=== PATIENT | female | born 1945 | race African-American/Black ===

== ENCOUNTER 2018-11-19 09:17 | Day surgery (SDC) | payer OTHER, BC ==
[2018-11-06 13:19] VITALS: BMI 27.3
[2018-11-19] MEDS ORDERED: PROPOFOL 20 ML ONE ×2 (10:24)
[2018-11-19] MEDS ORDERED: LIDOCAINE HCL/PF 2% SDV 5ML VIAL ONE (10:24)
[2018-11-19 15:36] VITALS: BP 116/68; PULSE 67; TEMP 98.2
--- NOTE | 2018-11-21 16:33 | PATH ---
Surgical Pathology Report Patient Name: DANIELA PRADHAN [facility]. Rec. #: [id number] /Age/Gender: 1945 (Age: 73) / F Account: [id number] Location: [facility] Taken: 11/19/2018 Received: 11/19/2018 Reported: 11/21/2018 Physicians: Torri Demarco M.D. Specimen(s) Received A: BX SECOND PORTION DUODENUM B: BX GASTRIC ANTRUM C: BX POLYP GASTRIC BODY D: BX GE JUNCTION Clinical History Abdominal pain Postoperative diagnosis: None given Final Diagnosis A. SECOND PORTION OF DUODENUM, BIOPSY: DUODENAL MUCOSA WITH NO PATHOLOGIC FINDINGS. B. GASTRIC ANTRUM, BIOPSY: MILD CHRONIC GASTRITIS. IMMUNOSTAIN IS NEGATIVE FOR H. PYLORI ORGANISMS. C. GASTRIC BODY, POLYP, BIOPSY: MILD CHRONIC GASTRITIS. IMMUNOSTAIN IS NEGATIVE FOR H. PYLORI ORGANISMS. Note: No polyp is identified. D. GE JUNCTION, BIOPSY: COLUMNAR (GASTRIC-TYPE) MUCOSA SHOWING MILD CHRONIC INFLAMMATION. NEGATIVE FOR INTESTINAL METAPLASIA. NO ESOPHAGEAL (SQUAMOUS) MUCOSA IS IDENTIFIED. Electronically Signed Katty Reyes M.D. Gross Description A. Received in formalin, labeled "biopsy second portion of duodenum" is a hassan, irregular portion of soft tissue measuring 0.3 cm. in greatest dimension. The specimen is submitted in toto in one cassette. B. Received in formalin, labeled "biopsy gastric antrum" is a hassan, irregular portion of soft tissue measuring 0.5 cm. in greatest dimension. The specimen is submitted in toto in one cassette. C. Received in formalin, labeled "biopsy polyp gastric body" is a hassan, irregular portion of soft tissue measuring 0.3 cm. in greatest dimension. The specimen is submitted in toto in one cassette. D. Received in formalin, labeled "biopsy GE junction" is a hassan, irregular portion of soft tissue measuring 0.4 cm. in greatest dimension. The specimen is submitted in toto in one cassette. 11/20/2018 saudi11/20/2018
== END 2018-11-19 15:36 | disposition home or self-care (01) ==
LOC: FASU-ENDO 09:17
PROVIDERS: ATTEND Internal Medicine Gastroenterology
PROC: 0DB68ZX Excision of Stomach, Via Natural or Artificial Opening Endoscopic, Diagnostic (ICD-10-PCS; 2018-11-19)
PROC: 0DB48ZX Excision of Esophagogastric Junction, Via Natural or Artificial Opening Endoscopic, Diagnostic (ICD-10-PCS; 2018-11-19)
PROC: 0DB98ZX Excision of Duodenum, Via Natural or Artificial Opening Endoscopic, Diagnostic (ICD-10-PCS; principal; 2018-11-19 12:03)
DX: K29.50 Unspecified chronic gastritis without bleeding (principal); K20.9 Esophagitis, unspecified; K31.7 Polyp of stomach and duodenum
CPT/HCPCS: 82962; 88305-TC; 88342-TC

== ENCOUNTER 2020-08-12 09:54 | Day surgery (SDC) | payer OTHER, BC ==
[2020-08-09 12:51] VITALS: BMI 28.3
[2020-08-12 11:39] VITALS: TEMP 98
[2020-08-12 11:54] VITALS: BP 105/64; PULSE 75
== END 2020-08-12 11:55 | disposition home or self-care (01) ==
LOC: FASU-ENDO 09:54
PROVIDERS: ATTEND Internal Medicine Gastroenterology
PROC: 0DBL8ZX Excision of Transverse Colon, Via Natural or Artificial Opening Endoscopic, Diagnostic (ICD-10-PCS; 2020-08-12)
PROC: 0DBN8ZX Excision of Sigmoid Colon, Via Natural or Artificial Opening Endoscopic, Diagnostic (ICD-10-PCS; principal; 2020-08-12 10:52)
DX: D12.3 Benign neoplasm of transverse colon (principal); D12.7 Benign neoplasm of rectosigmoid junction; K64.1 Second degree hemorrhoids; K57.30 Diverticulosis of large intestine without perforation or abscess without bleeding; R10.9 Unspecified abdominal pain
CPT/HCPCS: 82962; 88305-TC

== ENCOUNTER 2021-08-29 13:06 | Day surgery (SDC) | payer OTHER, BC ==
[2021-08-28 15:03] VITALS: BMI 28.3
[2021-08-29 13:22] VITALS: TEMP 97.4
[2021-08-29 14:58] VITALS: BP 101/56; PULSE 69
== END 2021-08-29 15:00 | disposition home or self-care (01) ==
LOC: FASU-ENDO 13:06
PROVIDERS: ATTEND Internal Medicine Gastroenterology
PROC: 0DB78ZX Excision of Stomach, Pylorus, Via Natural or Artificial Opening Endoscopic, Diagnostic (ICD-10-PCS; 2021-08-29)
PROC: 0DB48ZX Excision of Esophagogastric Junction, Via Natural or Artificial Opening Endoscopic, Diagnostic (ICD-10-PCS; 2021-08-29)
PROC: 0DB98ZX Excision of Duodenum, Via Natural or Artificial Opening Endoscopic, Diagnostic (ICD-10-PCS; principal; 2021-08-29 13:58)
DX: K29.50 Unspecified chronic gastritis without bleeding (principal); I25.10 Atherosclerotic heart disease of native coronary artery without angina pectoris; I10 Essential (primary) hypertension; E11.9 Type 2 diabetes mellitus without complications
CPT/HCPCS: 88305-TC; 88342-TC

== ENCOUNTER 2022-12-28 08:11 | Day surgery (SDC) | payer OTHER, BC ==
[2022-12-25 13:48] VITALS: BMI 27.4
[2022-12-28 08:26] VITALS: RESP 18
[2022-12-28 09:46] VITALS: TEMP 96
[2022-12-28 10:01] VITALS: BP 132/65; PULSE 75
== END 2022-12-28 10:16 | disposition home or self-care (01) ==
LOC: FASU-ENDO 08:11
PROVIDERS: ATTEND Internal Medicine Gastroenterology
PROC: 0DB78ZX Excision of Stomach, Pylorus, Via Natural or Artificial Opening Endoscopic, Diagnostic (ICD-10-PCS; 2022-12-28)
PROC: 0DB48ZX Excision of Esophagogastric Junction, Via Natural or Artificial Opening Endoscopic, Diagnostic (ICD-10-PCS; 2022-12-28)
PROC: 0DB98ZX Excision of Duodenum, Via Natural or Artificial Opening Endoscopic, Diagnostic (ICD-10-PCS; principal; 2022-12-28 09:25)
DX: K29.50 Unspecified chronic gastritis without bleeding (principal); K20.90 Esophagitis, unspecified without bleeding
CPT/HCPCS: 82962; 88305-TC; 88342-TC